=== PATIENT | female | born 1980 | race Caucasian/White ===

== ENCOUNTER 2016-11-18 18:52 | Emergency (ER) | payer MEDICAID, OTHER ==
[~2016-11-18] VITALS: Ht 172.7 cm; Wt 79.5 kg
[2016-11-18 19:08] VITALS: BP 111/75; RESP 16; O2SAT 99
--- NOTE | 2016-11-18 21:44 | ED.REPORT ---
HPI-General Illness Date of Service November 18, 2016 ED Provider: Dr. Dunn Pt is a 36 y/o female presenting to the ED c/o sore throat onset today. She c/o associated right cervical lymphadenopathy. She denies SOB or vomiting. There has been sick contacts with other people who have sore throats. She is overall healthy. No other complaints. Nursing Notes Stated Complaint: POSSIBLE STREP THROAT Chief Complaint: ENT & Mouth Nursing Notes Reviewed: Yes Allergies: Coded Allergies: No Known Allergies (Verified , 11/18/16) General Time Seen by MD: 21:43 Chief Complaint Other (sore throat) Hx Obtained From: Patient Arrived By: Walk-in Sudden in Onset?: No Onset Occurred: 5 - 8 hours ago Symptom Duration: Since onset Location: : Mouth Quality: Painful Severity: Current: Mild Severity: Maximum: Mild Past Medical History Past Medical History Denies Past Surgical History None reported Smoking History Unknown if Ever Smoker Ambulatory Status Independent Review of Systems Full Review of Systems Constitutional: Denies: Chills, Fever Ears / Nose / Throat: Reports: Sore throat Respiratory: Denies: Shortness of breath GI: Denies: Vomiting Complete sys rev & neg: except as marked. Physical Exam Vital Signs Vital Signs Date Time Temp Pulse Resp B/P Pulse Ox O2 Delivery O2 Flow Rate FiO2 11/18/16 22:38 36.7 75 16 101/68 97 Room Air 11/18/16 19:08 36.7 68 16 111/75 99 Room Air Initial VS: Reviewed, Vital signs normal Head / Eyes: Atraumatic, Normocephalic, PERRL Neck: Supple, Full range of motion Respiratory: Breath sounds normal, Clear to auscultation, No respiratory distress Cardiovascular: Regular rate & rhythm, Heart sounds normal, Intact distal pulses Abdomen / GI: Soft, Non-tender, No guarding, No rebound, No distention Extremities: Vascular intact, Neuro intact, No swelling, No tenderness Skin: Warm, Dry, No cyanosis Neurologic: Alert, Oriented, Nonfocal Psychiatric: Mood/affect normal, Behavior normal, Normal thought content General/Constitutional: Awake, Alert, No acute distress, Well appearing, Cooperative, Not toxic appearing ENT: Atraumatic, Airway patent, Mucous membranes moist Mild pharyngeal erythema Re-Eval/Medical Decision Med Decision/Clinical Course Pt is a 36 y/o female presenting to the ED c/o sore throat onset today. She c/o associated right cervical lymphadenopathy. She denies SOB or vomiting. There has been sick contacts with other people who have sore throats. She is overall healthy. No other complaints. Patient afebrile with stable vital signs in apparent distress. Examination of the oropharynx reveals mild erythema with midline uvula and no evidence of bacterial pharyngitis. Rapid strep negative. No tonsillar exudate. No evidence of peritonsillar abscess or retropharyngeal abscess. No evidence of abscess or cellulitis of the neck. Overall presentation was consistent with viral pharyngitis. Advised ibuprofen, salt water gargles and follow up with primary care physician. Prior to discharge follow-up and return precautions were reviewed in detail with the patient who verbalized understanding and agreement with the plan. The patient was discharged in stable condition. Time of Eval: 22:39 Re-Evaluation/Progress Note: Discharged upon intitial interview. Counseled Regarding: Diagnosis, Need for follow-up, When/why to return to ED Discharge & Departure Primary Impression: Pharyngitis Pharyngitis/tonsillitis etiology: unspecified etiology Qualified Code: J02.9 - Acute pharyngitis, unspecified Additional Impression: Cervical adenopathy Disposition: Home Discharge Condition All VS Reviewed: Yes Condition: Stable Patient Instructions: Pharyngitis (ED) Additional Instructions: It appears you have pharyngitis. The rapid strep is negative. This should improve with time. Return to the emergency department if you experience trouble breathing, vomiting , or other concerning symptoms. Follow-up with your doctor if symptoms persist. Referrals: NOPCP (PCP) Sor[facility] Attestation Portions of this note were transcribed by Clarence Miller. I, Dr. Dunn personally performed the history, physical exam and medical decision-making; I reviewed and confirmed the accuracy of the information in the transcribed note. Signed by Valentin Walls, 11/18/16 - [id number] Orlando Dunn MD November 18, 2016 21:44 CLARENCE MILLER November 18, 2016 22:20
[2016-11-18 22:38] VITALS: BP 101/68; PULSE 75; RESP 16; O2SAT 97
== END 2016-11-18 22:39 | disposition home or self-care (01) ==
LOC: SED 18:52
DX: J06.9 Acute upper respiratory infection, unspecified (principal); R59.9 Enlarged lymph nodes, unspecified